=== PATIENT | female | born 1970 | race Caucasian/White ===

== ENCOUNTER 2019-01-09 11:23 | Emergency (ER) | payer OTHER ==
--- NOTE | 2019-01-09 11:25 | UC ---
Laceration HPI - HPI Summary HPI Summary: 48 yo female presents for suture removal. She had 4 sutures placed to her left arm on 12/27. Has had no issues. Denies pain, drainage, swelling, or fever. - History Of Current Complaint Stated Complaint: SUTURE REMOVAL Time Seen by Provider: 01/09/19 11:24 Hx Last Menstrual Period: 2010 r/t chemo/radiation Laceration Location: Arm - Allergies/Home Medications Allergies/Adverse Reactions: Allergies Allergy/AdvReac Type Severity Reaction Status Date / Time No Known Allergies Allergy Verified 01/09/19 11:40 PMH/Surg Hx/FS Hx/Imm Hx Endocrine History: Dyslipidemia Psychological History: Anxiety, Depression - Surgical History Surgical History: None - Family History Known Family History: Positive: Non-Contributory - Social History Lives: With Family Alcohol Use: Daily Substance Use Type: Marijuana Smoking Status (MU): Heavy Every Day Tobacco Smoker Review of Systems All Other Systems Reviewed And Are Negative: No Constitutional: Positive: Negative Skin: Positive: Other - sutures in place left arm Neurovascular: Positive: Negative Musculoskeletal: Positive: Negative Neurological: Positive: Negative Psychological: Positive: Negative Physical Exam - Summary Physical Exam Summary: GENERAL: NAD. WDWN. No pain distress. SKIN: LEFT ARM: [address] Lac well healed without drainage, erythema, edema, or tenderness. CHEST: No accessory muscle use. Breathing comfortably and in no distress. CV: Pulses intact. Cap refill <2seconds NEURO: Alert. PSYCH: Age appropriate behavior. Triage Information Reviewed: Yes Vital Signs: Vital Signs: Temp Pulse Resp BP Pulse Ox 98.1 F 75 18 155/95 99 01/09/19 11:37 01/09/19 11:37 01/09/19 11:37 01/09/19 11:37 01/09/19 11:37 Vital Signs Reviewed: Yes Laceration Course/Dx - Course/Dx Course Of Treatment: Sutures removed without difficulty - Diagnosis Provider Diagnosis: Visit for suture removal Discharge ED - Sign-Out/Discharge Documenting (check all that apply): Patient Departure All imaging exams completed and their final reports reviewed: No Studies - Discharge Plan Condition: Stable Disposition: HOME Patient Education Materials: Stitches Removal (ED) Referrals: Krzysztof RALPH,Vasiliy Jo [Primary Care Provider] - Additional Instructions: If you develop a fever, shortness of breath, chest pain, new or worsening symptoms - please call your PCP or go to the ED immediately. - Billing Disposition and Condition Condition: STABLE Disposition: Home
[2019-01-09 11:40] VITALS: BP 155/95
== END 2019-01-09 11:42 | disposition home or self-care (01) ==
LOC: UCEAST 11:23
DX: S41.112D Laceration without foreign body of left upper arm, subsequent encounter (principal); X58.XXXD Exposure to other specified factors, subsequent encounter; E78.5 Hyperlipidemia, unspecified; F41.9 Anxiety disorder, unspecified; F32.9 Major depressive disorder, single episode, unspecified; F17.210 Nicotine dependence, cigarettes, uncomplicated